=== PATIENT | female | born 1990 | race African-American/Black ===

== ENCOUNTER 2018-07-27 11:38 | Emergency (ER) | payer BC ==
[~2018-07-27] VITALS: Ht 160 cm; Wt 62.6 kg
[2018-07-27 11:42] VITALS: BP 154/108; Ht 160 cm; Wt 62.6 kg
== END 2018-07-27 12:15 | disposition home or self-care (01) ==
LOC: ED 11:38
DX: F41.9 Anxiety disorder, unspecified (principal); G47.00 Insomnia, unspecified; Z88.0 Allergy status to penicillin

== ENCOUNTER 2018-08-01 16:47 | Emergency (ER) | payer BC ==
[~2018-08-01] VITALS: Ht 162.6 cm; Wt 62.6 kg
[2018-08-01 17:02] VITALS: Ht 162.6 cm; Wt 62.6 kg
[2018-08-01 17:40] VITALS: BP 124/91
== END 2018-08-01 17:41 | disposition home or self-care (01) ==
LOC: ED 16:47
DX: R30.0 Dysuria (principal); R30.9 Painful micturition, unspecified; R35.0 Frequency of micturition; Z88.0 Allergy status to penicillin; Z88.1 Allergy status to other antibiotic agents

== ENCOUNTER 2018-08-06 04:52 | Emergency (ER) | payer BC ==
[~2018-08-06] VITALS: Ht 162.6 cm; Wt 61.7 kg
[2018-08-06 04:56] VITALS: Ht 162.6 cm; Wt 61.7 kg
[2018-08-06 05:37] LABS: microscopic required? YES; urine erythrocyte 3+ (NEGATIVE)
[2018-08-06 08:15] VITALS: BP 139/79
== END 2018-08-06 08:15 | disposition home or self-care (01) ==
LOC: ED 04:52
PROVIDERS: Emergency Medicine
DX: N34.2 Other urethritis (principal); Z88.0 Allergy status to penicillin; Z88.1 Allergy status to other antibiotic agents
CPT/HCPCS: 87491; 87591; J1580; J1885; Q0162

== ENCOUNTER 2018-08-06 13:13 | Emergency (ER) | payer BC ==
[~2018-08-06] VITALS: Ht 162.6 cm; Wt 62.1 kg
[2018-08-06 13:18] VITALS: Ht 162.6 cm; Wt 62.1 kg
[2018-08-06 15:35] LABS: PLATELET COUNT 316 x10^3mcL (130-400); RED CELL DISTRIBUTION WIDTH 13.9 % (11.5-14.5)
[2018-08-06 15:53] LABS: CARBON DIOXIDE 25.2 mmol/L (21-32); CHLORIDE SERUM 104 mmol/L (98-107); CREATININE SERUM 0.8 mg/dL (0.6-1.0); GFR1 > 60 mL/min; GLUCOSE SERUM 105 mg/dL (74-106); POTASSIUM SERUM 3.6 mmol/L (3.5-5.1); SODIUM SERUM 140 mmol/L (136-145)
[2018-08-06 16:48] VITALS: BP 123/78
[2018-08-06 16:50] LABS: BAND NEUTROPHIL 7 % (0-10); BASOPHIL 0 % (0-2); METAMYELOCTE 2 % (0-2); MONOCYTE 6 % (0-7); MYELOCYTE 2 % (0-2); SEGMENTED NEUTROPHILS 76 % (37-75)
[2018-08-06 16:51] LABS: PLATELET MORPHOLOGY PLATELETS NORMAL; rbc morphology (normal/abnorm) NORMAL (NORMAL)
[2018-08-06 16:55] LABS: ALBUMIN 3.7 g/dL (3.4-5.0); BILIRUBIN DIRECT 0.11 mg/dL (0.0-0.2); BILIRUBIN TOTAL 0.48 mg/dL (0.20-1.00); TOTAL PROTEIN, SERUM 6.8 g/dL (6.4-8.2)
== END 2018-08-06 18:31 | disposition home or self-care (01) ==
LOC: ED 13:13
PROVIDERS: Emergency Medicine
DX: I88.0 Nonspecific mesenteric lymphadenitis (principal); Z88.0 Allergy status to penicillin; Z88.1 Allergy status to other antibiotic agents
CPT/HCPCS: 36415; J1885

== ENCOUNTER 2018-08-24 06:38 | Emergency (ER) | payer BC ==
[~2018-08-24] VITALS: Ht 160 cm; Wt 60.3 kg
[2018-08-24 06:47] VITALS: Ht 160 cm; Wt 60.3 kg
[2018-08-24 07:57] LABS: microscopic required? NO
[2018-08-24 08:07] LABS: BASOPHIL % 0.1 % (0-2); PLATELET COUNT 353 x10^3mcL (130-400); RED CELL DISTRIBUTION WIDTH 14.4 % (11.5-14.5)
[2018-08-24 08:20] LABS: CHLORIDE SERUM 108 mmol/L (98-107); CREATININE SERUM 0.8 mg/dL (0.6-1.0); GFR1 > 60 mL/min; GLUCOSE SERUM 112 mg/dL (74-106); POTASSIUM SERUM 3.9 mmol/L (3.5-5.1); SODIUM SERUM 144 mmol/L (136-145)
[2018-08-24 08:24] LABS: ALBUMIN 3.4 g/dL (3.4-5.0); ALKALINE PHOSPHATASE 76 U/L (46-116); ALT/SGPT 29 U/L (14-59); AST/SGOT 10 U/L (15-37); BILIRUBIN TOTAL 0.43 mg/dL (0.20-1.00); LIPASE 203 IU/L (73-393); TOTAL PROTEIN, SERUM 7.3 g/dL (6.4-8.2)
[2018-08-24 08:35] LABS: T3 TOTAL 1.07 ng/mL
[2018-08-24 08:36] LABS: FREE T4 1.24 ng/dL (0.76-1.46); FREE THYROXINE INDEX 2.9 ug/dL (1.4-4.5); T4(THYROXINE) 7.6 ug/dL (4.7-13.3)
[2018-08-24 08:45] LABS: UA SPECIFIC GRAVITY 1.015 (1.005-1.035); urine erythrocyte NEGATIVE (NEGATIVE)
[2018-08-24 13:30] VITALS: BP 128/79
== END 2018-08-24 13:30 | disposition home or self-care (01) ==
LOC: ED 06:38
PROVIDERS: Emergency Medicine
DX: R10.84 Generalized abdominal pain (principal); G47.00 Insomnia, unspecified; R63.4 Abnormal weight loss
CPT/HCPCS: 36415; 84439; J7030; Q9966; Q9967